=== PATIENT | female | born 1935 | race Caucasian/White ===

== ENCOUNTER → 2021-08-29 | Outpatient (CLI) | payer MEDICARE, BC ==
[2021-08-29 10:05] VITALS: BP 182/81; PULSE 65; RESP 18
--- NOTE | 2021-08-29 10:45 | P.CON ---
Consult Note - . Consult date: 08/29/21 Assessment/Plan:: HISTORY OF PRESENT ILLNESS: 86 yr female as a referral from Dr Mullen presents today with chronic and severe cervical pain secondary to DDD, spinal stenosis, neuroforaminal stenoses, spondylosis and facet arthropathy for evaluation. Pt states her pain level is 6/10 in intensity, dull and achy in the lower aspects of her C spine but radiates towards her shoulders and UEs in a sharp, shooting burning character. Also admits to occasional numbness in the hands. Pain escalates as high as 10/10 in intensity with repetitive movements. Pain is relieved with medications (Mobic, Neurontin by Dr Mallory), home based stretching regimen at home, heat or rest. Pt admits to 60% pain relief for a month with 2 weeks of prednisone, but the pain returned thereafter. PMH: OA, Peripheral Neuropathy PSH: Cholecystectomy, Appendectomy, Hysterectomy SH: Negative x 3 FH: Non contributory All: See list Meds: See list REVIEW OF ORGAN SYSTEMS: CONSTITUTIONAL: No fevers or chills. No recent weight loss. HEENT: No visual acuity loss, eye pain, difficulties with hearing. No nosebleeds. No difficulty swallowing. RESPIRATORY: Denies any troubles with breathing or dyspnea on exertion. CARDIOVASCULAR: Denies any chest pain, palpitations, or recent heart attacks. GASTROINTESTINAL: Denies fatty food intolerance. Has change in bowel habits and gas bloat. GENITOURINARY: Denies any blood in urine. Has increased urinary frequency. NEUROLOGICAL: + numbness and tingling along the distal extremities. No seizure disorders or headaches. MUSCULOSKELETAL: + back pain SKIN: No skin cancer. No rash. PSYCHIATRIC: Denies current depression or suicidal thoughts. ENDOCRINE: Denies current thyroid disorders. Denies any blood sugar glucose intolerance. HEME/LYMPHATIC: Denies any lumps and bumps around the neck. History of deep venous thrombosis. ALLERGY/IMMUNOLOGY: No immunoglobulin therapy. No immune deficiencies. BREAST: Denies current breast lumps, pain or nipple discharge. Physical Examinations : Constitutional : Cooperative , not in acute distress . HEENT: Neck supple. No Lymphadenopathy. Normal thyroid size . Eyes no ptosis , no icterus, no photophobia . Hearing intact. Normal oropharynx. No Thrush. Respiratory : Chest clear to auscultations bilaterally. No wheezing. No rhonchi. Cardiovascular : Regular rate and rhythm , S1 / S2. No S3 . No S4. Gastrointestinal : Abdomen soft. No tenderness. Bowel sounds x 4. No organomegaly . Genitourinary : Deferred. Neurologic : Cranial nerve II to XII intact. No focal neurological deficits. Psychiatric : alert & oriented x 3. Matching mood & appropriate affect. Judgment & insight intact. Lymphatic No Lymphadenopathy. Musculoskeletal : Cervical Spine Motor strength in the deltoid and biceps: Normal right side. Normal Left side Motor strength biceps and the wrist extensors: Normal right side . Normal left side Motor strength in the triceps muscle: Normal right side. Normal left side Deep tendon reflexes: Normal at the biceps. Normal at Brachioradialis. Normal at triceps Vertebral body tenderness over C6, C7 Cervical facet loading test: positive bilaterally Spurling test: positive bilaterally Neck distraction test: positive bilaterally Moe sign: positive bilaterally Lumbar spine Motor strength lower extremities ,thigh and legs 5/5 Right side , 5/5 Left side Deep tendon reflexes : Normal Knee Jerk. Normal Ankle Jerk Vertebral body tenderness over Lumbar facet Loading Test: positive Right / positive Left Range of motion of the lumbar spine Flexion 30 degrees, extension 10 degrees Straight Leg Raise test: Left/ Right positive at degree Odette test: positive right / positive left. Severe tenderness over the Sacroiliac joint on the Right / Left sides Gaenslen test: positive bilaterally Seated flexion test: positive bilaterally. Imaging: MRI without contrast of the cervical spine from 08/12/21 reviewed Assessment/ Plan : Cervical DDD, Cervical facet arthropathy, Cervical Stenosis Recommendation of FELECIA C6-C7. May need a series of injections, up to 3 within a six-month period, for optimal pain relief. Risks, benefits of procedure discussed and patient verbalized understanding. Denies aspirin or anti- coagulant use or medical history of diabetes. All questions answered. I have spent greater than 50 minutes on patient care today. Dr Rosado was available by phone for the evaluation of this patient. The time was used to review the medical records including relevant urine studies and Prescription history (MAPs), review of the available imaging, evaluation and examination of the patient, coordination of care with the medical staff and if applicable referring physicians, as well as creation of the medical record PQRS Measure Charge Sheet Mode of Arrival: Ambulatory - Pain Location Neck Non-Pharmacological Interventions: Heat, Home Exercise, Position/Reposition, Stretching Pharmacological Interventions: PRN Medication, Scheduled Medication PQRS Narrative: Blood Pressure 182/81 Pain Intensity [Neck] 6 Scale Used Numeric (1 - 10) Hx Alcohol Use (MH) No Home Medications: Ambulatory Orders Gabapentin [Neurontin] 300 mg PO TID 08/29/21 Ibuprofen [Motrin] 400 mg PO Q8HR PRN 08/29/21 Meloxicam [Mobic] 7.5 mg PO DAILY 08/29/21 Vit C/E/Zn/Coppr/Lutein/Zeaxan [Preservision Areds 2 Softgel] 226 mg PO DAILY 08/29/21
== END ==
LOC: PNWHC3 09:03
PROVIDERS: ATTEND Specialist
DX: M50.30 Other cervical disc degeneration, unspecified cervical region (principal); M47.812 Spondylosis without myelopathy or radiculopathy, cervical region; M48.02 Spinal stenosis, cervical region; Z88.6 Allergy status to analgesic agent; Z88.5 Allergy status to narcotic agent
CPT/HCPCS: 99211

== ENCOUNTER 2021-10-22 09:19 | Day surgery (SDC) | payer MEDICARE, BC ==
[2021-10-18 16:07] VITALS: BMI 22.4
[~2021-10-22 09:19] MED LIST: LACTATED RINGERS 1,000 ML IV SCH; LIDOCAINE 1% (10MG/ML) FOR IV START INTRADERMA PRN
[2021-10-22 09:49] VITALS: TEMP 97.9
[2021-10-22] MEDS ORDERED: hydrALAZINE HCL 20 MG/ML 1 ML VIAL IVP ONE (09:55)
[2021-10-22] MEDS ORDERED: IOPAMIDOL M200 10 ML VIAL ONE (09:57)
[2021-10-22] MEDS ORDERED: fentaNYL (PF) 50 MCG/ML 2 ML AMP ONE (09:57)
[2021-10-22] MEDS ORDERED: MIDAZOLAM 2 MG/2 ML VIAL ONE (09:57)
[2021-10-22] MEDS ORDERED: DEXAMETHASONE SOD PHOSPHATE 10 MG/ML 1 ML VIAL ONE (09:57)
--- NOTE | 2021-10-22 10:12 | P.PCN ---
Date of Procedure: 10/22/21 Procedure(s) Performed: . PROCEDURE 1. Cervical epidural steroid injection under fluoroscopic guidance, C7-T1 (fluoroscopy images available in the radiology department ) 2. Cervical epidurogram. PREOPERATIVE DIAGNOSIS: 1- Cervical Degenerative Disc Diseases 2-cervical spondylosis with cervical Facet arthropathy without myelopathy POSTOPERATIVE DIAGNOSIS: : 1- Cervical Degenerative Disc Diseases , 2-cervical spondylosis with cervical Facet arthropathy without myelopathy ANESTHESIA: Local anesthesia with lidocaine 1 % , and moderate sedation, with Versed 1 mg and Fentanyl 50 mcg. EBL 0 PROCEDURE INDICATION: The patient with neck pain and radiculitis unresponsive to conservative treatment consents for procedure. PROCEDURE DESCRIPTION / TECHNIQUE: The patient was seen and identified in the preoperative area. Risks, benefits, complications, including but not limited to infections ,bleeding , allergic reactions to the medications ,and not complete pain releife, and alternatives were discussed with the patient, the patient agreed to proceed with the procedure and signed the consent. Patient was taken to the OR and time out was completed. The patient was placed in the prone position on the procedure table. A pillow was placed under the patients chest to increase the cervical interlaminar space. The cervical area was prepped and draped in the usual sterile fashion. Vital signs were closely monitored during the procedure. Conscious sedation was used during the procedure to decrease patients anxiety. Using anterior-posterior fluoroscopy, the C7-T1 interlaminar space was identified and the skin over this site was marked and then infiltrated with 1% lidocaine subcutaneously. Subsequently, a 20-gauge 3-1/2-inch Tuohy epidural needle was inserted and advanced toward the epidural space by means of the ``hanging-drop technique and guided by AP and lateral fluoroscopy. The correct needle position in the epidural space was verified with the injection of 2 mL of the water soluble contrast dye [id number]-[id number] and observing an excellent epidurogram with the epidural spread of the dye, after negative aspiration for blood and CSF and in the absence of paresthesias. then, mixture containing 10 mg Dexamethasone and 2 ml of preservative-free normal saline injected and a washout of epidurogram was seen. Needle was withdrawn intact, skin was cleansed, and bandages were applied. Complications= none. Disposition= patient was placed in supine position and transferred to the recovery room area in stable condition and there was no evidence of upper or lower extremity motor or sensory deficit after the procedure patient was discharged from recovery room after discharge criteria met and home discharge instructions was given by the staff and patient will follow with the pain clinic in 2-4 weeks
[2021-10-22] MEDS ORDERED: IV FLUID CONTINUATION 800 ML IV ONE (10:18)
[2021-10-22 10:44] VITALS: BP 176/75; PULSE 76; RESP 18
--- NOTE | 2021-10-22 10:48 | FL ---
EXAMINATION TYPE: FL guided pain mgmt statistic DATE OF EXAM: 10/22/2021 CLINICAL HISTORY: Cervical epidural injection TECHNIQUE: Fluoroscopic guided procedure. FINDINGS: Fluoroscopic guidance was provided during the procedure. A total of 9 seconds of fluorosco pic time was utilized during the procedure and 1 spot image was acquired. IMPRESSION: As Above.
== END 2021-10-22 11:00 | disposition home or self-care (01) ==
LOC: ORPAIN 09:19
PROVIDERS: ATTEND Specialist
DX: M50.10 Cervical disc disorder with radiculopathy, unspecified cervical region (principal); M47.22 Other spondylosis with radiculopathy, cervical region; Z88.5 Allergy status to narcotic agent
CPT/HCPCS: 62321; J2250; J0360; J1100; J3010; Q9966

== ENCOUNTER → 2021-11-11 | Outpatient (CLI) | payer MEDICARE, BC ==
[2021-11-11 09:42] VITALS: BP 209/91; PULSE 65; RESP 18; TEMP 97.9
--- NOTE | 2021-11-11 14:23 | P.PAINPG ---
PQRS Measure Charge Sheet Comment: A 86 yr old female w at side with a history of severe and chronic neck pain secondary to cervical degenerative disc diseases and spondylosis with facet arthropathy presents today for evaluation s/p FELECIA C7-T1 x 2. Pt states she experienced 0% pain relief s/p procedure. Pain level is currently at 5/10 in intensity, localized in lower cervical spine with radiation of numbness to BL UEs, constant, dull/ achy/ sharp/ shooting towards the UEs. Pain is provoked by lifting. Pain is alleviated with PT which she hasn't started yet, medications (Ibuprofen, Lidocaine topicals), repositioning and rest. Interventional pain procedures completed include FELECIA x2 Patient is currently on Motrin, Lidocaine topical Patient denies any side effects of the medication(s), denies excessive drowsiness or sleepiness, denies suicidal ideation and reports that the current pain medication is helping to control the pain and improve activities of daily living. Patient denies any motor or sensory deficits. Patient denies any fever or night sweats, denies any change in the bowel movements or urination. Physical Examination: -Constitutional: Cooperative. Not in acute distress . - Neurologic: Cranial nerve II to XII intact. No focal neurological deficits. - Psychatric: Alert & oriented x 3. Matching mood & appropriate affect. Judgment and insight intact. - Musculoskeletal: Cervical spine: Muscle bulk/ tone/ strength in the bilateral upper extremities normal Vertebral body tenderness to palpation over Spurling test positive Distraction test positive Facet loading test positive over BL C6-C7, C7-T1 Thoracic spine Muscle bulk / tone/ strength in the bilateral paraspinal muscles normal Vertebral body tender to palpation over Facet loading test positive Lumbar spine: Motor bulk/ tone/ strength lower extremities , thigh and legs : 5/5 Deep tendon reflexes : Normal Knee Jerk. Normal Ankle Jerk . Vertebral body tenderness to palpation over Lumbar Facet Loading Test positive Straight Leg Raise: positive at 30 degrees right side/ left side Gaenslen's Test positive Sacral spine : Severe tenderness over the Sacroiliac joint: right side / left side Range of motion: Flexion of the lumbar spine <60 degrees Range of motion: Extension of the lumbar spine <20 degrees Gaenslen's Test positive Jermaine's Test positive Odette test: positive right side / left side Thigh Thrust Test Sacral Thrust Test Assessment and plan: Chronic neck pain secondary to cervical degenerative disc disease , spond ylosis with facet arthropathy without myelopathy Recommendation of BL facet block of the MBs C6-C7, C7-T1. May need a series of injections, up until RFA, for optimal pain relief. Risks, benefits of procedure discussed and pt verbalized understanding. Denies anticoagulant use or medical history of diabetes. All patient questions answered MAPS reviewed and it was appropriate. I have spent less than 30 minutes on patient care today. Dr Rosado was available by phone for the evaluation of this patient. The time was used to review the medical records including relevant urine studies and Prescription history (MAPs), review of the available imaging, evaluation and examination of the patient, coordination of care with the medical staff and if applicable referring physicians, as well as creation of the medical record PQRS Narrative: Hx Alcohol Use (MH) No Home Medications: Ambulatory Orders Albuterol Inhaler [Ventolin Hfa Inhaler] 1 puff INHALATION DIRECTED PRN 10/18/21 Ibuprofen [Motrin Ib] 400 - 600 mg PO DIRECTED PRN 10/18/21 Vit C/E/Zn/Coppr/Lutein/Zeaxan [Preservision Areds 2 Softgel] 2 each PO DAILY 10/18/21 Controlled Substance Measures - Controlled Substance Measures Is patient prescribed a controlled substance at discharge?: No
== END ==
LOC: PNWHC3 09:13
PROVIDERS: ATTEND Specialist
DX: M50.30 Other cervical disc degeneration, unspecified cervical region (principal); M47.812 Spondylosis without myelopathy or radiculopathy, cervical region; Z88.5 Allergy status to narcotic agent; Z88.6 Allergy status to analgesic agent; Z91.02 Food additives allergy status
CPT/HCPCS: 99211

== ENCOUNTER 2022-02-07 07:37 | Inpatient (IN) | payer MEDICARE, BC ==
[2022-02-07] MEDS ORDERED: hydrALAZINE HCL 20 MG/ML 1 ML VIAL IVP STA ×2 (08:00→08:52)
--- NOTE | 2022-02-07 08:10 | ED ---
Recheck HPI - General Chief Complaint: Recheck/Abnormal Lab/Rx Stated Complaint: hypertension Time Seen by Provider: 02/07/22 07:54 Source: patient, family, RN notes reviewed Mode of arrival: ambulatory Limitations: no limitations - History of Present Illness Initial Comments: This is an 86-year-old female who presents to the emergency department for hyp ertension. Patient states that she has been getting headaches due to her elevated blood pressure. She saw her primary care provider 3-4 days ago, and her lisinopril was increased to 20 mg. States that she has not yet seen any improvement in her blood pressure. She has only been treated for hypertension over the course of the last month. States that prior to a month ago, she never had problems with her blood pressure. Denies any chest pain, shortness of breath, or other symptoms aside from the headache. Denies any visual changes. Denies any fevers, chills, sore throat, cough, dyspnea, chest pain, palpitations, abdominal pain, nausea, vomiting, diarrhea, or back pain. MD Complaint: other (Hypertension) - Related Data Home Medications Medication Instructions Recorded Confirmed Vit C/E/Zn/Coppr/Lutein/Zeaxan 2 cap PO DAILY 10/18/21 02/07/22 [Preservision Areds 2 Softgel] lisinopriL [Zestril] 20 mg PO DAILY 02/07/22 02/07/22 Allergies Allergy/AdvReac Type Severity Reaction Status Date / Time acetaminophen AdvReac stomach Verified 02/07/22 12:49 pain codeine AdvReac stomach Verified 02/07/22 12:49 pain [employer]ERS AdvReac Unknown Diarrhea Uncoded 02/07/22 12:49 Review of Systems ROS Statement: Those systems with pertinent positive or pertinent negative responses have been documented in the HPI. ROS Other: All systems not noted in ROS Statement are negative. Past Medical History Past Medical History: Asthma, Hypertension Additional Past Medical History / Comment(s): IBS, NECK PAIN WITH PAIN AND NUMBNESS IN ARMS AND HANDS.Scoliosis History of Any Multi-Drug Resistant Organisms: None Reported Past Surgical History: Appendectomy, Cholecystectomy, Hysterectomy, Tonsillectomy Past Anesthesia/Blood Transfusion Reactions: No Reported Reaction Past Psychological History: No Psychological Hx Reported Smoking Status: Never smoker Past Alcohol Use History: None Reported Past Drug Use History: None Reported General Exam Limitations: no limitations General appearance: alert, in no apparent distress Head exam: Present: atraumatic, normocephalic, normal inspection Respiratory exam: Present: normal lung sounds bilaterally. Absent: respiratory distress, wheezes, rales, rhonchi, stridor Cardiovascular Exam: Present: regular rate, normal rhythm, normal heart sounds. Absent: systolic murmur, diastolic murmur, rubs, gallop, clicks Neurological exam: Present: alert, oriented X3, CN II-XII intact Psychiatric exam: Present: normal affect, normal mood Skin exam: Present: warm, dry, intact, normal color. Absent: rash Course Vital Signs 02/07/22 02/07/22 02/07/22 07:46 08:01 08:30 Temperature 97.9 F Pulse Rate 76 66 86 Respiratory 20 16 16 Rate Blood Pressure 230/110 163/75 O2 Sat by Pulse 97 96 97 Oximetry 02/07/22 02/07/22 02/07/22 08:50 09:05 11:01 Temperature Pulse Rate 90 96 72 Respiratory 16 18 14 Rate Blood Pressure 173/73 176/102 107/56 O2 Sat by Pulse 98 97 97 Oximetry 02/07/22 11:30 Temperature Pulse Rate 89 Respiratory 16 Rate Blood Pressure 143/73 O2 Sat by Pulse 96 Oximetry Medical Decision Making - Medical Decision Making This is an 86-year-old female who presents to the emergency department for hypertension. Patient's initial blood pressure is markedly elevated at 230/110. She was subsequently given 20 mg of hydralazine and lab work was obtained to look for signs of end organ damage. Lab work was nonactionable. Patient noted that she started feeling anxious with chest pain, shortness of breath, and nausea. The chest pain is described as tightness. Chest x-ray was subsequently obtained, revealing no acute cardiopulmonary process. She was given Zofran and 0.5 mg of Ativan. Patient continued to feel very weak. She was given a liter of IV fluids. Symptoms did not improve after IV fluids and she was subsequently given a nitroglycerin tablet. Again, the nitroglycerin had no effect on her symptoms. The chest pain started shortly after her first dose of hydralazine when the blood pressure was in the 180s systolically. Chest pain likely occurred due to the drop in blood pressure. After a couple of hours and being given Aspirin and Morphine, symptoms slowly started to improve. However, she does continue to be on 2 L of oxygen via nasal cannula with saturations ranging from 90-95%. This was discussed with the [facility] for observation admission, however they requested she be placed inpatient due to hypertensive urgency/emergency. Patient admitted to medicine on inpatient status. This case was discussed in detail with the attending ED physician. Presentation, findings, and treatment plan discussed in detail as well. - Lab Data Result diagrams: 02/07/22 08:21 02/07/22 08:21 Lab Results 02/07/22 02/07/22 02/07/22 Range/Units 08:21 08:21 08:21 WBC 7.1 (3.8-10.6) k/uL RBC 4.80 (3.80-5.40) m/uL Hgb 14.1 (11.4-16.0) gm/dL Hct 41.8 (34.0-46.0) % MCV 87.2 (80.0-100.0) fL MCH 29.5 (25.0-35.0) pg MCHC 33.8 (31.0-37.0) g/dL RDW 13.1 (11.5-15.5) % Plt Count 226 (150-450) k/uL MPV 8.3 Neutrophils % 68 % Lymphocytes % 16 % Monocytes % 6 % Eosinophils % 8 % Basophils % 1 % Neutrophils # 4.8 (1.3-7.7) k/uL Lymphocytes # 1.1 (1.0-4.8) k/uL Monocytes # 0.5 (0-1.0) k/uL Eosinophils # 0.5 (0-0.7) k/uL Basophils # 0.0 (0-0.2) k/uL PT (9.0-12.0) sec INR (<1.2) APTT (22.0-30.0) sec D-Dimer (<0.60) mg/L FEU Sodium 140 (137-145) mmol/L Potassium 3.7 (3.5-5.1) mmol/L Chloride 105 (98-107) mmol/L Carbon Dioxide 26 (22-30) mmol/L Anion Gap 9 mmol/L BUN 15 (7-17) mg/dL Creatinine 0.56 (0.52-1.04) mg/dL Est GFR (CKD-EPI)AfAm >90 (>60 ml/min/1.73 sqM) Est GFR (CKD-EPI)NonAf 85 (>60 ml/min/1.73 sqM) Glucose 99 (74-99) mg/dL Calcium 9.4 (8.4-10.2) mg/dL Total Bilirubin 1.1 (0.2-1.3) mg/dL AST 21 (14-36) U/L ALT 14 (4-34) U/L Alkaline Phosphatase 104 (38-126) U/L Troponin I (0.000-0.034) ng/mL Total Protein 6.5 (6.3-8.2) g/dL Albumin 4.2 (3.5-5.0) g/dL Urine Color Light Yellow Urine Appearance Clear (Clear) Urine pH 6.5 (5.0-8.0) Ur Specific Zearing 1.010 (1.001-1.035) Urine Protein Negative (Negative) Urine Glucose (UA) Negative (Negative) Urine Ketones Trace H (Negative) Urine Blood Negative (Negative) Urine Nitrite Negative (Negative) Urine Bilirubin Negative (Negative) Urine Urobilinogen <2.0 (<2.0) mg/dL Ur Leukocyte Esterase Trace H (Negative) Urine RBC 1 (0-5) /hpf Urine WBC 2 (0-5) /hpf Hyaline Casts 1 (0-2) /lpf Urine Mucus Rare H (None) /hpf 02/07/22 02/07/22 02/07/22 Range/Units 08:21 11:30 11:30 WBC (3.8-10.6) k/uL RBC (3.80-5.40) m/uL Hgb (11.4-16.0) gm/dL Hct (34.0-46.0) % MCV (80.0-100.0) fL MCH (25.0-35.0) pg MCHC (31.0-37.0) g/dL RDW (11.5-15.5) % Plt Count (150-450) k/uL MPV Neutrophils % % Lymphocytes % % Monocytes % % Eosinophils % % Basophils % % Neutrophils # (1.3-7.7) k/uL Lymphocytes # (1.0-4.8) k/uL Monocytes # (0-1.0) k/uL Eosinophils # (0-0.7) k/uL Basophils # (0-0.2) k/uL PT 10.9 (9.0-12.0) sec INR 1.0 (<1.2) APTT 19.3 L (22.0-30.0) sec D-Dimer 0.52 (<0.60) mg/L FEU Sodium (137-145) mmol/L Potassium (3.5-5.1) mmol/L Chloride (98-107) mmol/L Carbon Dioxide (22-30) mmol/L Anion Gap mmol/L BUN (7-17) mg/dL Creatinine (0.52-1.04) mg/dL Est GFR (CKD-EPI)AfAm (>60 ml/min/1.73 sqM) Est GFR (CKD-EPI)NonAf (>60 ml/min/1.73 sqM) Glucose (74-99) mg/dL Calcium (8.4-10.2) mg/dL Total Bilirubin (0.2-1.3) mg/dL AST (14-36) U/L ALT (4-34) U/L Alkaline Phosphatase (38-126) U/L Troponin I <0.012 <0.012 (0.000-0.034) ng/mL Total Protein (6.3-8.2) g/dL Albumin (3.5-5.0) g/dL Urine Color Urine Appearance (Clear) Urine pH (5.0-8.0) Ur Specific Zearing (1.001-1.035) Urine Protein (Negative) Urine Glucose (UA) (Negative) Urine Ketones (Negative) Urine Blood (Negative) Urine Nitrite (Negative) Urine Bilirubin (Negative) Urine Urobilinogen (<2.0) mg/dL Ur Leukocyte Esterase (Negative) Urine RBC (0-5) /hpf Urine WBC (0-5) /hpf Hyaline Casts (0-2) /lpf Urine Mucus (None) /hpf - EKG Data EKG Comments: Sinus rhythm. Normal axis. Left atrial enlargement. Ventricular rate 66 bpm, MI interval 177 ms, QRS duration 99 ms, QTC 418 ms. - Radiology Data Radiology results: report reviewed, image reviewed Disposition Clinical Impression: Chest pain, Hypertensive crisis Disposition: ADMITTED IP TO THIS [facility] Referrals: Chantel Mallory DO [Primary Care Provider] - 1-2 days
[2022-02-07 08:31] LABS: Basophils % (A) 1 %; Eosinophils # (A) 0.5 k/uL (0-0.7); Eosinophils % (A) 8 %; HCT 41.8 % (34.0-46.0); HGB 14.1 gm/dL (11.4-16.0); Lymphocytes # (A) 1.1 k/uL (1.0-4.8); Lymphocytes % (A) 16 %; MCH 29.5 pg (25.0-35.0); MCHC 33.8 g/dL (31.0-37.0); MCV 87.2 fL (80.0-100.0); Mean Platelet Volume 8.3; Monocytes # (A) 0.5 k/uL (0-1.0); Monocytes % (A) 6 %; Neutrophils # (A) 4.8 k/uL (1.3-7.7); Neutrophils % (A) 68 %; Platelet Count 226 k/uL (150-450); RDW 13.1 % (11.5-15.5); WBC 7.1 k/uL (3.8-10.6)
[2022-02-07 08:48] LABS: ALT 14 U/L (4-34); AST 21 U/L (14-36); African American GFR (CKD) >90 (>60 ml/min/1.73 sqM); Albumin 4.2 g/dL (3.5-5.0); Alkaline Phosphatase 104 U/L (38-126); Anion Gap 9 mmol/L; Blood Urea Nitrogen 15 mg/dL (7-17); Calcium 9.4 mg/dL (8.4-10.2); Carbon Dioxide 26 mmol/L (22-30); Chloride 105 mmol/L (98-107); Glucose 99 mg/dL (74-99); Non-African American GFR(CKD) 85 (>60 ml/min/1.73 sqM); Potassium 3.7 mmol/L (3.5-5.1); Sodium 140 mmol/L (137-145); Total Bilirubin 1.1 mg/dL (0.2-1.3); Total Protein 6.5 g/dL (6.3-8.2)
[2022-02-07] MEDS ORDERED: KETOROLAC 15 MG/ML 1 ML VIAL IVP STA ×2 (08:57→15:51)
[2022-02-07] MEDS ORDERED: ONDANSETRON 4 MG/2 ML VIAL IVP STA (09:14)
[2022-02-07] MEDS ORDERED: LORazepam 2 MG/ML INJ IV STA (09:24)
[2022-02-07 09:48] LABS: Appearance,Urine Clear (Clear); Bilirubin,Urine Negative (Negative); Blood,Urine Negative (Negative); Color,Urine Light Yellow; Glucose,Urine (UA) Negative (Negative); Hyaline Casts,Urine 1 /lpf (0-2); Ketones,Urine Trace (Negative); Leukocyte Esterase,Urine Trace (Negative); Mucus,Urine Rare /hpf; Nitrite,Urine Negative (Negative); PH, Urine 6.5 (5.0-8.0); Protein,Urine Negative (Negative); RBC,Urine 1 /hpf (0-5); Urobilinogen,Urine <2.0 mg/dL (<2.0); WBC,Urine 2 /hpf (0-5)
[2022-02-07] MEDS ORDERED: SODIUM CHLORIDE 0.9% 1,000 ML IV STA (10:05)
--- NOTE | 2022-02-07 10:41 | XR ---
EXAMINATION TYPE: XR chest 2V DATE OF EXAM: 02/07/2022 COMPARISON: None INDICATION: Chest pain TECHNIQUE: Frontal and lateral views of the chest are obtained. FINDINGS: The heart size is normal. The pulmonary vasculature is normal. The lungs are clear. IMPRESSION: 1. No acute pulmonary process.
[2022-02-07] MEDS ORDERED: NITROGLYCERIN SL TABS 0.4 MG TAB SUBLINGUAL STA (11:48)
[2022-02-07] MEDS ORDERED: ASPIRIN 81 MG PO STA (12:04)
[2022-02-07] MEDS ORDERED: MORPHINE SULFATE 2 MG/ML SYRINGE IVP STA (12:18)
[2022-02-07 13:20] LABS: Prothrombin Time 10.9 sec (9.0-12.0)
[2022-02-07 13:24] LABS: Partial Thromboplastin Time 19.3 sec (22.0-30.0)
[2022-02-07] MEDS ORDERED: NALOXONE 0.4 MG/ML 1 ML VIAL IV PRN (14:57)
[2022-02-07] MEDS ORDERED: ONDANSETRON 4 MG/2 ML VIAL IVP PRN (14:57)
[2022-02-07] MEDS ORDERED: KETOROLAC 15 MG/ML 1 ML VIAL IVP PRN (14:57)
[2022-02-07] MEDS ORDERED: MORPHINE SULFATE 2 MG/ML SYRINGE IVP PRN (14:59)
[2022-02-07] MEDS ORDERED: METOCLOPRAMIDE 5 MG/ML 2 ML VIAL IVP STA (15:51)
[2022-02-07] MEDS ORDERED: HEPARIN SODIUM 1,000 UN/ML (10ML VL) IV ONE (18:42)
[2022-02-07] MEDS ORDERED: HEPARIN SODIUM 1,000 UN/ML (10ML VL) IV PRN (18:42)
--- NOTE | 2022-02-07 19:23 | CT ---
EXAMINATION TYPE: CT brain wo con DATE OF EXAM: 02/07/2022 COMPARISON: None HISTORY: hypertensive urgency, headache, elevated troponin CT DLP: 1123.4 mGycm Automated exposure control for dose reduction was used. There is hypodensity in the periventricular white matter. There is no mass effect nor midline shift. No sign of intracranial hemorrhage. The calvarium is intact. There is normal aeration of the mastoid sinus on the left side. There is incomplete pneumatization right mastoid sinus. IMPRESSION: Cerebral atrophy and chronic small vessel ischemia. No acute intracranial abnormality.
[2022-02-07] MEDS: HEPARIN SOD,PORK IN 0.45% NACL 25,000 UNIT in 0.45% NACL 1 250ML.BAG IV SCH (21:15)
[2022-02-08] MEDS ORDERED: hydrALAZINE HCL 25 MG TAB PO PRN (07:02)
[2022-02-08] MEDS ORDERED: ASPIRIN 81 MG PO SCH (09:00)
[2022-02-08] MEDS ORDERED: lisinopriL 20 MG TAB PO SCH (09:00)
--- NOTE | 2022-02-08 09:07 | P.HPIM ---
History of Present Illness This is a pleasant 86 years old female with past medical history of Asthma, Hypertension,IBS, neck and back pain with pain and numbness in the arms and hands, Scoliosis Presents because of headache and hypertension 230/110. Patient states that her headache was mild about 2/10, currently is completely resolved no other symptoms like dizziness or weakness or numbness. No blurred vision or slurred speech. She has some mild chest pain which was central nonradiating yesterday and is now completely gone. No dyspnea, no coughing. No vomiting or diarrhea or abdominal pain. No dysuria or urgency. Smoked or drank alcohol use drugs she states. She follows up with Dr. Myers [facility] for her scoliosis and neck pain and spinal disease which causes sometimes leg pain Currently her blood pressure improved down to 145/81. She is saturating 90% on room air. She is afebrile. Vitals are stable. Unremarkable labs including CBC, INR 1.0, normal d-dimer of 0.52. BNP is unremarkable Liver enzymes not elevated. Troponin: 2 negative results less than 0.012, slightly elevated at 0.25. Urine analysis is unremarkable. CT of the brain: Cerebral atrophy and chronic ischemic changes with no acute intracranial process. Chest x-ray: No acute process. EKG showing normal sinus rhythm at [address]-T changes. In the emergency room patient received hydralazine and heparin drip Review of Systems Review of systems CONSTITUTIONAL: No fever, no malaise, no fatigue. HEENT: No recent visual problems or hearing problems. Denied any sore throat. CARDIOVASCULAR: No orthopnea, PND, no palpitations, no syncope. PULMONARY: No shortness of breath, no cough, no hemoptysis. GASTROINTESTINAL: No diarrhea, no nausea, no vomiting, no abdominal pain. Normoactive bowel sounds. NEUROLOGICAL: No headaches, no weakness, no numbness. HEMATOLOGICAL: Denies any bleeding or petechiae. GENITOURINARY: Denies any burning micturition, frequency, or urgency. MUSCULOSKELETAL/RHEUMATOLOGICAL: Denies any joint pain, swelling, or any muscle pain. ENDOCRINE: Denies any polyuria or polydipsia. Past Medical History Past Medical History: Asthma, Hypertension Additional Past Medical History / Comment(s): IBS, neck and back pain with pain and numbness in the arms and hands, Scoliosis History of Any Multi-Drug Resistant Organisms: None Reported Past Surgical History: Appendectomy, Cholecystectomy, Hysterectomy, Tonsillectomy Past Anesthesia/Blood Transfusion Reactions: No Reported Reaction Past Psychological History: No Psychological Hx Reported Smoking Status: Never smoker Past Alcohol Use History: None Reported Past Drug Use History: None Reported Medications and Allergies Home Medications Medication Instructions Recorded Confirmed Type Vit C/E/Zn/Coppr/Lutein/Zeaxan 2 cap PO DAILY 10/18/21 02/07/22 History [Preservision Areds 2 Softgel] lisinopriL [Zestril] 20 mg PO DAILY 02/07/22 02/07/22 History Allergies Allergy/AdvReac Type Severity Reaction Status Date / Time acetaminophen AdvReac stomach Verified 02/07/22 12:49 pain codeine AdvReac stomach Verified 02/07/22 12:49 pain [employer] AdvReac Unknown Diarrhea Uncoded 02/07/22 12:49 Physical Exam Vitals: Vital Signs Temp Pulse Pulse Resp BP BP Pulse Ox 02/08/22 04:00 99.1 F 80 18 145/81 90 L 02/07/22 23:11 98.9 F 89 16 160/71 90 L 02/07/22 19:48 98.3 F 90 18 161/68 91 L 02/07/22 17:00 98.3 F 78 16 119/65 94 L 02/07/22 11:30 89 16 143/73 96 02/07/22 11:01 72 14 107/56 97 02/07/22 09:05 96 18 176/102 97 02/07/22 08:50 90 16 173/73 98 02/07/22 08:30 86 16 163/75 97 02/07/22 08:01 66 16 96 02/07/22 07:46 97.9 F 76 20 230/110 97 Intake and Output 02/07/22 02/07/22 02/08/22 14:59 22:59 06:59 Intake Total 73.167 Balance 73.167 Intake: Intake, IV Titration 73.167 Amount Heparin Sod,Pork in 0.45% 73.167 NaCl 25,000 unit In 0.45 % NaCl 1 250ml.bag @ 12 UNITS/KG/HR 6.26 mls/hr IV .Q24H [facility] Rx#: [id number] Oral 0 Other: Voiding Method Toilet Toilet # Voids 2 # Bowel Movements 1 Weight 52.163 kg 52.163 kg 52 kg GENERAL: The patient is alert and oriented x3, not in any acute distress. Well developed, well nourished. HEENT: Pupils are round and equally reacting to light. EOMI. No scleral icterus. No conjunctival pallor. Normocephalic, atraumatic. No pharyngeal erythema. No thyromegaly. CARDIOVASCULAR: S1 and S2 present. No murmurs, rubs, or gallops. PULMONARY: Chest is clear to auscultation, no wheezing or crackles. ABDOMEN: Soft, nontender, nondistended, normoactive bowel sounds. No palpable organomegaly. MUSCULOSKELETAL: No joint swelling or deformity. EXTREMITIES: No cyanosis, clubbing, or pedal edema. NEUROLOGICAL: Gross neurological examination did not reveal any focal deficits. SKIN: No rashes. no petechiae. Results CBC & Chem 7: 02/07/22 08:21 02/07/22 08:21 Labs: Abnormal Lab Results - Last 24 Hours (Table) 02/07/22 02/07/22 02/07/22 Range/Units 08:21 11:30 17:46 APTT 19.3 L (22.0-30.0) sec Troponin I 0.258 H* (0.000-0.034) ng/mL Urine Ketones Trace H (Negative) Ur Leukocyte Esterase Trace H (Negative) Urine Mucus Rare H (None) /hpf 02/08/22 Range/Units 03:33 APTT 73.9 H (22.0-30.0) sec Troponin I (0.000-0.034) ng/mL Urine Ketones (Negative) Ur Leukocyte Esterase (Negative) Urine Mucus (None) /hpf Thrombosis Risk Factor Assmnt - Choose All That Apply Any of the Below Risk Factors Present?: No Other Risk Factors: No Other congenital or acquired thrombophilia - If yes, enter type in comment: No Thrombosis Risk Factor Assessment Level: Very Low Risk Assessment and Plan Assessment: Hypertension with urgency on admission elevated troponin, most likely secondary to stress from hypertension. 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 Continue same treatment. Continue with symptomatic treatment. Resume home medication. Monitor lytes and vitals. DVT and GI prophylaxis. Further recommendations as per clinical course of the patient DVT prophylaxis: heparin GI Prophylaxis: Pepcid Prognosis is guarded
[2022-02-08] MEDS: FAMOTIDINE 20 MG/2 ML VIAL IV SCH ×2 (10:22→20:27)
[2022-02-08] MEDS: VALSARTAN 160 MG TAB PO SCH ×2 (10:32→20:27)
--- NOTE | 2022-02-08 12:16 | P.CRDCN ---
History of Present Illness Consult date: 02/08/22 Consult reason: hypertension History of present illness: This is Deyvi Stevenson NP, I'm dictating on behalf of Dr. Garcia's H&P and A&P The patient was interviewed and examined. HPI: [We reconsult us to see this pleasant 86-year-old female for hypertensive urgency. Patient reports that she has had continuously elevated blood pressures over the last month. She reports that she was just recently diagnosed with hypertension approximately one month ago, and was started on lisinopril at that time. Patient states that yesterday she had checked her blood pressure and found it to be extremely high. She presented to the hospital for evaluation. The only symptom that she was experiencing was a headache. She does state that she was also experiencing some unsteadiness after presenting to the ER. Her initial blood pressure was 230/110. She was given IV hydralazine which did not work. The chest x-ray did not demonstrate any acute cardiopulmonary process. She was also given Zofran and Ativan. She continued to feel somewhat weak and her blood pressure continued to remain elevated. She was given a liter of fluids. She was also given nitroglycerin. She was then given aspirin and morphine, and her symptoms started to improve, as well as her blood pressure. She was admitted for further evaluation of the hypertension. Patient has a past medical history significant for asthma and hypertension. This morning she states that she feels much better. She is no longer complaining of a headache or weakness. She states she has not been able to get out of bed because she's been tied to the IV line.] ROS: [No fever, chills, or rigors] [no cough, phlegm, or expectoration] [no nausea, vomiting, or diarrhea] [no hematuria, dysuria] [no musculoskelatal complaints] [no strokes or seizures] [no skin lesions] EXAMINATION: GENERAL: Well-appearing, well-nourished and in no acute distress. NECK: Supple without JVD or thyromegaly. LUNGS: Breath sounds clear to auscultation bilaterally. Respiration equal and unlabored. No wheezes, rales or rhonchi. HEART: Regular rate and rhythm without murmurs, rubs or gallops. S1 and S2 hea rd. EXTREMITIES: Normal range of motion, no edema. No clubbing or cyanosis. Peripheral pulses intact and strong. REVIEW OF LABS, ECG & MEDICAL DATA: LABS: White count 7.1, hemoglobin 14.1, platelets 226, sodium 140, potassium 3.7, B1 15, creatinine 0.56, troponins - less than 0.012, less than 0.012, 0.258 EKG: Normal sinus rhythm IMAGING: Chest x-ray dated 02/07/2022 shows no acute cardiopulmonary process; CT of the brain shows cerebral atrophy and chronic small vessel ischemia. No acute intracranial abnormality. VITALS: Temp 97.5, pulse 72, respirations 16, blood pressure 142/66, O2 sat uration 96% on 2 L via nasal cannula. IMPRESSION: 1. Hypertension, uncontrolled 2. Hypertensive emergency PLAN: Discontinue lisinopril. Start valsartan 160 mg twice a day. Discontinue hydralazine. Discontinue aspirin. Patient was educated on Motrin use. This is likely why her lisinopril was not working well. Further recommendations based on the patient's clinical course. Thank you for the consult and allowing us to participate in the care of this patient. Past Medical History Past Medical History: Asthma, Hypertension Additional Past Medical History / Comment(s): IBS, neck and back pain with pain and numbness in the arms and hands, Scoliosis History of Any Multi-Drug Resistant Organisms: None Reported Past Surgical History: Appendectomy, Cholecystectomy, Hysterectomy, Tonsillectomy Past Anesthesia/Blood Transfusion Reactions: No Reported Reaction Past Psychological History: No Psychological Hx Reported Smoking Status: Never smoker Past Alcohol Use History: None Reported Past Drug Use History: None Reported Medications and Allergies Home Medications Medication Instructions Recorded Confirmed Type Vit C/E/Zn/Coppr/Lutein/Zeaxan 2 cap PO DAILY 10/18/21 02/07/22 History [Preservision Areds 2 Softgel] lisinopriL [Zestril] 20 mg PO DAILY 02/07/22 02/07/22 History Allergies Allergy/AdvReac Type Severity Reaction Status Date / Time acetaminophen AdvReac stomach Verified 02/07/22 12:49 pain codeine AdvReac stomach Verified 02/07/22 12:49 pain [employer] AdvReac Unknown Diarrhea Uncoded 02/07/22 12:49 Physical Exam Vitals: Vital Signs Temp Pulse Pulse Resp BP BP Pulse Ox 02/08/22 11:44 97.5 F L 72 16 142/66 96 02/08/22 08:00 98.8 F 70 18 137/66 97 02/08/22 04:00 99.1 F 80 18 145/81 90 L 02/07/22 23:11 98.9 F 89 16 160/71 90 L 02/07/22 19:48 98.3 F 90 18 161/68 91 L 02/07/22 17:00 98.3 F 78 16 119/65 94 L Intake and Output 02/07/22 02/08/22 02/08/22 22:59 06:59 14:59 Intake Total 73.167 62.543 Balance 73.167 62.543 Intake: Intake, IV Titration 73.167 62.543 Amount Heparin Sod,Pork in 0.45% 73.167 62.543 NaCl 25,000 unit In 0.45 % NaCl 1 250ml.bag @ 12 UNITS/KG/HR 6.26 mls/hr IV .Q24H [facility] Rx#: [id number] Oral 0 Other: Voiding Method Toilet Toilet Toilet # Voids 2 # Bowel Movements 1 Weight 52.163 kg 52 kg Results 02/07/22 08:21 02/07/22 08:21 Cardiac Enzymes 02/07/22 02/07/22 Range/Units 11:30 17:46 Troponin I <0.012 0.258 H* (0.000-0.034) ng/mL Coagulation 02/07/22 02/08/22 02/08/22 Range/Units 11:30 03:33 10:36 PT 10.9 (9.0-12.0) sec APTT 19.3 L 73.9 H 80.2 H (22.0-30.0) sec Current Medications Generic Name Dose Route Start Last Admin Trade Name Freq PRN Reason Stop Dose Admin Famotidine 20 mg 02/08/22 09:00 02/08/22 10:22 Famotidine 20 Mg/2 Ml Vial IV 20 mg Q12HR [facility] Administration Heparin Sodium (Porcine) 0 unit 02/07/22 18:42 Heparin Sodium 1,000 Un/Ml (10ml Vl) IV PER PROTOCOL PRN Low PTT Protocol Heparin Sodium/Sodium Chloride 250 mls @ 6.26 mls/hr 02/07/22 18:45 02/08/22 11:33 25,000 unit/ Sodium Chloride IV 15.17 units/kg/hr .Q24H [facility] 7.913 mls/hr Titration Protocol 12 UNITS/KG/HR Morphine Sulfate 2 mg 02/07/22 14:59 Morphine Sulfate 2 Mg/Ml Syringe IVP Q4H PRN Moderate Pain (Scale 4 to 6) Naloxone HCl 0.2 mg 02/07/22 14:57 Naloxone 0.4 Mg/Ml 1 Ml Vial IV Q2M PRN Opioid Reversal Ondansetron HCl 4 mg 02/07/22 14:57 Ondansetron 4 Mg/2 Ml Vial IVP Q8HR PRN Nausea And Vomiting Valsartan 160 mg 02/08/22 10:00 02/08/22 10:32 Valsartan 160 Mg Tab PO 160 mg BID [facility] Administration Intake and Output 02/07/22 02/08/22 02/08/22 22:59 06:59 14:59 Intake Total 73.167 62.543 Balance 73.167 62.543 Intake: Intake, IV Titration 73.167 62.543 Amount Heparin Sod,Pork in 0.45% 73.167 62.543 NaCl 25,000 unit In 0.45 % NaCl 1 250ml.bag @ 12 UNITS/KG/HR 6.26 mls/hr IV .Q24H [facility] Rx#: [id number] Oral 0 Other: Voiding Method Toilet Toilet Toilet # Voids 2 # Bowel Movements 1 Weight 52.163 kg 52 kg 02/07/22 08:21 02/07/22 08:21
[2022-02-08] MEDS: HEPARIN SOD,PORK IN 0.45% NACL 25,000 UNIT in 0.45% NACL 1 250ML.BAG IV SCH (18:45)
[2022-02-09] MEDS: VALSARTAN 160 MG TAB PO SCH (08:25)
[2022-02-09] MEDS: FAMOTIDINE 20 MG/2 ML VIAL IV SCH (08:25)
[2022-02-09] MEDS ORDERED: VALSARTAN 160 MG TAB PO STA (09:55)
[2022-02-09] MEDS ORDERED: amLODIPine 5 MG TAB PO SCH (12:00)
--- NOTE | 2022-02-09 12:28 | P.PN ---
Subjective Progress Note Date: 02/09/22 This is Deyvi Stevenson NP, I'm dictating on behalf of Dr. Garcia's H&P and A&P. Patient was interviewed and examined. Patient is a pleasant 86-year-old female who initially presented to the hospital with a hypertensive emergency. We started the patient on valsartan yesterday, which does appear to be assisting in decreasing her blood pressure, however this morning she was 209/87. After the valsartan was given she was 186/86. She currently denies the symptoms that brought her to the hospital, including headache, and shortness of breath. She also denies chest pain. GENERAL: Well-appearing, well-nourished and in no acute distress. NECK: Supple without JVD or thyromegaly. LUNGS: Breath sounds clear to auscultation bilaterally. Respiration equal and unlabored. No wheezes, rales or rhonchi. HEART: Regular rate and rhythm without murmurs, rubs or gallops. S1 and S2 heard. EXTREMITIES: Normal range of motion, no edema. No clubbing or cyanosis. Peripheral pulses intact and strong. VITALS: Temp 97.4, pulse 65, respirations 16, blood pressure 186/86, O2 saturation 95% on room air TELEMETRY: Normal sinus rhythm LABS: No new labs to report IMPRESSION: 1. Hypertension, uncontrolled 2. Hypertensive emergency PLAN: Discontinue heparin If her blood pressure is not under 160/80 by Thursday, add amlodipine We will change her valsartan to 320mg daily, give 160mg extra this morning to eq ual to 320mg. Further recommendations based on the patient's clinical course. Objective - Vital Signs Vital signs: Vital Signs Temp 97.4 F L 02/09/22 09:11 Pulse 65 02/09/22 09:11 Resp 16 02/09/22 09:11 BP 186/86 02/09/22 09:11 Pulse Ox 95 02/09/22 09:11 FiO2 Intake & Output 02/08/22 02/09/22 02/09/22 18:59 06:59 18:59 Intake Total 355.517 238.937 Balance 355.517 238.937 Intake: Intake, IV Titration 119.517 120.937 Amount Heparin Sod,Pork in 0.45% 119.517 120.937 NaCl 25,000 unit In 0.45 % NaCl 1 250ml.bag @ 12 UNITS/KG/HR 6.26 mls/hr IV .Q24H [facility] Rx#: [id number] Oral 236 118 Other: Voiding Method Toilet Toilet Toilet # Voids 2 1 - Labs CBC & Chem 7: 02/07/22 08:21 02/07/22 08:21 Labs: Abnormal Lab Results - Last 24 Hours (Table) 02/08/22 02/09/22 Range/Units 18:14 07:36 APTT 60.4 H 52.6 H (22.0-30.0) sec
--- NOTE | 2022-02-09 14:53 | CA ---
Transthoracic Echo Report Name: Lucina Estrada Age: 86 Gender: F : 1935 Exam Date: 02/08/2022 12:24 Exam Location: [facility] Ht (in): 60 Wt (lb): 114 Ordering Physician: Rafa Fuentes MD Attending/Referring Phys: [id number], Alfredo Zigzag Topstitcher Charisse Daniels, [facility] Procedure CPT: Indications: Rule out heart disease Cardiac Hx: Technical Quality: Good Contrast 1: Total Dose (mL): Contrast 2: Total Dose (mL): MEASUREMENTS (Male / Female) Normal Values 2D ECHO LV Diastolic Diameter PLAX 4.5 cm 4.2 - 5.9 / 3.9 - 5.3 cm LV Systolic Diameter PLAX 2.4 cm IVS Diastolic Thickness 1.3 cm 0.6 - 1.0 / 0.6 - 0.9 cm LVPW Diastolic Thickness 1.2 cm 0.6 - 1.0 / 0.6 - 0.9 cm LV Relative Wall Thickness 0.5 RV Internal Dim ED PLAX 3.4 cm LA Systolic Diameter LX 3.6 cm 3.0 - 4.0 / 2.7 - 3.8 cm LA Volume 46.7 cm??? 18 - 58 / 22 - 52 cm??? M-MODE Aortic Root Diameter MM 3.5 cm MV E Point Septal Separation 0.3 cm AV Cusp Separation MM 1.7 cm DOPPLER AV Peak Velocity 140.5 cm/s AV Peak Gradient 7.9 mmHg AI Peak Velocity 449.7 cm/s AI Peak Gradient 80.9 mmHg AI Pressure Half Time 586.7 ms MV Area PHT 2.9 cm??? Mitral E Point Velocity 97.7 cm/s Mitral A Point Velocity 109.0 cm/s Mitral E to A Ratio 0.9 MV Deceleration Time 263.3 ms MV E' Velocity 6.7 cm/s Mitral E to MV E' Ratio 14.6 TR Peak Velocity 259.0 cm/s TR Peak Gradient 26.8 mmHg Right Ventricular Systolic Press 29.8 mmHg FINDINGS Left Ventricle Left ventricular ejection fraction is estimated at 55-60 %. Mildly increased septal wall thickness. Mildly increased posterior wall thickness. Left ventricular cavity size normal. Right Ventricle Mild right ventricular dilatation. Mild pulmonary hypertension. Right Atrium Normal right atrial size. Left Atrium Normal left atrial size. No evidence for an atrial septal defect. Mitral Valve Structurally normal mitral valve. Trace mitral regurgitation. Aortic Valve Trileaflet aortic valve. Focal thickening of the aortic valve cusps. Mild aortic regurgitation. Tricuspid Valve Mild tricuspid regurgitation. Pulmonic Valve Trace to mild pulmonic regurgitation. Pericardium Normal pericardium. No pericardial effusion. Aorta Normal size aortic root and proximal ascending aorta. CONCLUSIONS LVH with preserved LV systolic function Septal bulge Previewed by: Dr. Nazario Garcia MD (Electronically Signed) Final Date: 09 February 2022 14:52
--- NOTE | 2022-02-09 14:53 | CA ---
Transthoracic Echo Report Name: Lucina Estrada Age: 86 Gender: F : 1935 Exam Date: 02/08/2022 12:24 Exam Location: [facility] Ht (in): 60 Wt (lb): 114 Ordering Physician: Rafa Fuentes MD Attending/Referring Phys: [id number], Alfredo Metrology Specialist Charisse Daniels, [facility] Procedure CPT: Indications: Rule out heart disease Cardiac Hx: Technical Quality: Good Contrast 1: Total Dose (mL): Contrast 2: Total Dose (mL): MEASUREMENTS (Male / Female) Normal Values 2D ECHO LV Diastolic Diameter PLAX 4.5 cm 4.2 - 5.9 / 3.9 - 5.3 cm LV Systolic Diameter PLAX 2.4 cm IVS Diastolic Thickness 1.3 cm 0.6 - 1.0 / 0.6 - 0.9 cm LVPW Diastolic Thickness 1.2 cm 0.6 - 1.0 / 0.6 - 0.9 cm LV Relative Wall Thickness 0.5 RV Internal Dim ED PLAX 3.4 cm LA Systolic Diameter LX 3.6 cm 3.0 - 4.0 / 2.7 - 3.8 cm LA Volume 46.7 cm??? 18 - 58 / 22 - 52 cm??? M-MODE Aortic Root Diameter MM 3.5 cm MV E Point Septal Separation 0.3 cm AV Cusp Separation MM 1.7 cm DOPPLER AV Peak Velocity 140.5 cm/s AV Peak Gradient 7.9 mmHg AI Peak Velocity 449.7 cm/s AI Peak Gradient 80.9 mmHg AI Pressure Half Time 586.7 ms MV Area PHT 2.9 cm??? Mitral E Point Velocity 97.7 cm/s Mitral A Point Velocity 109.0 cm/s Mitral E to A Ratio 0.9 MV Deceleration Time 263.3 ms MV E' Velocity 6.7 cm/s Mitral E to MV E' Ratio 14.6 TR Peak Velocity 259.0 cm/s TR Peak Gradient 26.8 mmHg Right Ventricular Systolic Press 29.8 mmHg FINDINGS Left Ventricle Left ventricular ejection fraction is estimated at 55-60 %. Mildly increased septal wall thickness. Mildly increased posterior wall thickness. Left ventricular cavity size normal. Right Ventricle Mild right ventricular dilatation. Mild pulmonary hypertension. Right Atrium Normal right atrial size. Left Atrium Normal left atrial size. No evidence for an atrial septal defect. Mitral Valve Structurally normal mitral valve. Trace mitral regurgitation. Aortic Valve Trileaflet aortic valve. Focal thickening of the aortic valve cusps. Mild aortic regurgitation. Tricuspid Valve Mild tricuspid regurgitation. Pulmonic Valve Trace to mild pulmonic regurgitation. Pericardium Normal pericardium. No pericardial effusion. Aorta Normal size aortic root and proximal ascending aorta. CONCLUSIONS LVH with preserved LV systolic function Septal bulge Previewed by: Dr. Nazario Garcia MD (Electronically Signed) Final Date: 09 February 2022 14:52
--- NOTE | 2022-02-09 15:09 | P.PN ---
Subjective This is a pleasant 86 years old female with past medical history of Asthma, Hypertension,IBS, neck and back pain with pain and numbness in the arms and hands, Scoliosis Presents because of headache and hypertension 230/110. Patient states that her headache was mild about 2/10, currently is completely resolved no other symptoms like dizziness or weakness or numbness. No blurred vision or slurred speech. She has some mild chest pain which was central nonradiating yesterday and is now completely gone. No dyspnea, no coughing. No vomiting or diarrhea or abdominal pain. No dysuria or urgency. Smoked or drank alcohol use drugs she states. She follows up with Dr. Myers and [facility] for her scoliosis and neck pain and spinal disease which causes sometimes leg pain Currently her blood pressure improved down to 145/81. She is saturating 90% on room air. She is afebrile. Vitals are stable. Unremarkable labs including CBC, INR 1.0, normal d-dimer of 0.52. BNP is unremarkable Liver enzymes not elevated. Troponin: 2 negative results less than 0.012, slightly elevated at 0.25. Urine analysis is unremarkable. CT of the brain: Cerebral atrophy and chronic ischemic changes with no acute intracranial process. Chest x-ray: No acute process. EKG showing normal sinus rhythm at [address]-T changes. In the emergency room patient received hydralazine and heparin drip 02/10/2012 Patient denies headache, denies chest pain today, she was asking if she can go home today but discussed her problems and she agrees to stay and continued care. I Discussed with bed side nurse to stop heparin drip in the morning. Patient blood pressure is uncontrolled, she received another extra dose of losartan 160 mg in the morning, however her blood pressure went up 186/86 up to 196/62, Norvasc 5 mg started with close monitoring of blood pressure Start IV fluid Objective - Vital Signs Vital signs: Vital Signs Temp 98.3 F 02/09/22 12:13 Pulse 60 02/09/22 12:13 Resp 18 02/09/22 12:13 BP 196/62 02/09/22 12:13 Pulse Ox 95 02/09/22 12:13 FiO2 Intake & Output 02/08/22 02/09/22 02/09/22 18:59 06:59 18:59 Intake Total 355.517 356.937 Balance 355.517 356.937 Intake: Intake, IV Titration 119.517 120.937 Amount Heparin Sod,Pork in 0.45% 119.517 120.937 NaCl 25,000 unit In 0.45 % NaCl 1 250ml.bag @ 12 UNITS/KG/HR 6.26 mls/hr IV .Q24H [facility] Rx#: [id number] Oral 236 236 Other: Voiding Method Toilet Toilet Toilet # Voids 2 1 - Exam GENERAL: The patient is alert and oriented x3, not in any acute distress. Well developed, well nourished. HEENT: Pupils are round and equally reacting to light. EOMI. No scleral icterus. No conjunctival pallor. Normocephalic, atraumatic. No pharyngeal erythema. No thyromegaly. CARDIOVASCULAR: S1 and S2 present. No murmurs, rubs, or gallops. PULMONARY: Chest is clear to auscultation, no wheezing or crackles. ABDOMEN: Soft, nontender, nondistended, normoactive bowel sounds. No palpable organomegaly. MUSCULOSKELETAL: No joint swelling or deformity. EXTREMITIES: No cyanosis, clubbing, or pedal edema. NEUROLOGICAL: Gross neurological examination did not reveal any focal deficits. SKIN: No rashes. no petechiae. - Labs CBC & Chem 7: 02/07/22 08:21 02/07/22 08:21 Labs: Abnormal Lab Results - Last 24 Hours (Table) 02/08/22 02/09/22 Range/Units 18:14 07:36 APTT 60.4 H 52.6 H (22.0-30.0) sec Assessment and Plan Assessment: Hypertension with urgency on admission elevated troponin, most likely secondary to stress from hypertension. Rule out non-STEMI Asthma, not in active tissue History of irritable bowel syndrome Chronic neck and back pain with chronic numbness or forearms and hands History of scoliosis Plan: This is a pleasant 56 years old female with an estimated hypertension No need for aspirin, risks more than benefits Continue heparin drip Continue with antihypertensive medication, currently on losartan 320 mg daily, Norvasc 5 mg added Continue close monitoring of blood pressure Consider starting IV fluid Cardiology consult Labs and medication were reviewed.. Continue same treatment. Continue with symptomatic treatment. Resume home medication. Monitor lytes and vitals. DVT and GI prophylaxis. Further recommendations as per clinical course of the patient DVT prophylaxis: heparin GI Prophylaxis: Pepcid Prognosis is guarded discussed with staff and bedside nurse
[2022-02-09] MEDS: amLODIPine 5 MG TAB PO SCH ×2 (18:55→20:29)
[2022-02-09] MEDS ORDERED: hydrALAZINE HCL 20 MG/ML 1 ML VIAL IVP PRN (19:43)
[2022-02-09] MEDS ORDERED: LORazepam 1 MG/0.5 ML VIAL IV PRN (19:43)
[2022-02-09] MEDS: FAMOTIDINE 20 MG TAB PO SCH (20:28)
[2022-02-10] MEDS ORDERED: hydrALAZINE HCL 25 MG TAB PO PRN (05:35)
[2022-02-10] MEDS: VALSARTAN 160 MG TAB PO SCH (08:44)
[2022-02-10] MEDS: FAMOTIDINE 20 MG TAB PO SCH (08:44)
[2022-02-10] MEDS: amLODIPine 5 MG TAB PO SCH ×2 (08:44→20:46)
[2022-02-10 09:24] LABS: HCT 42.1 % (34.0-46.0); HGB 14.2 gm/dL (11.4-16.0); MCH 29.8 pg (25.0-35.0); MCHC 33.7 g/dL (31.0-37.0); MCV 88.4 fL (80.0-100.0); Mean Platelet Volume 8.1; Platelet Count 254 k/uL (150-450); RBC 4.76 m/uL (3.80-5.40); RDW 12.9 % (11.5-15.5); WBC 5.6 k/uL (3.8-10.6)
--- NOTE | 2022-02-10 09:32 | P.PN ---
Subjective Progress Note Date: 02/10/22 HISTORY OF PRESENT ILLNESS: This is an 86-year-old female who does not follow up outpatient with a director of compliance. She is admitted to the hospital secondary to hypertensive emergency. Patient was started on valsartan and amlodipine. Her blood pressures have improved. She denies any chest pain or pressure. She denies any shortness of breath. Echocardiogram reveals ejection fraction 55-60% PHYSICAL EXAM: VITAL SIGNS: Reviewed. GENERAL: Well-developed in no acute distress. NECK: Supple. No JVD or thyromegaly LUNGS: Respirations even and unlabored. Lungs essentially clear to auscultation bilaterally. HEART: Regular rate and rhythm. S1 and S2 heard. EXTREMITIES: Normal range of motion. No clubbing or cyanosis. Peripheral pulses intact. No lower extremity edema ASSESSMENT: Hypertensive emergency History of hypertension PLAN: Continue current cardiac medications Patient is stable for discharge home today from a cardiac standpoint Patient to follow-up on an outpatient basis with Dr. Garcia Nurse practitioner note has been reviewed by physician. Signing provider agrees with the documented findings, assessment, and plan of care. Objective - Vital Signs Vital signs: Vital Signs Temp 97.9 F 02/10/22 03:42 Pulse 74 02/10/22 03:42 Resp 16 02/10/22 03:42 BP 136/65 02/10/22 03:42 Pulse Ox 95 02/10/22 03:42 FiO2 Intake & Output 02/09/22 02/10/22 02/10/22 18:59 06:59 18:59 Intake Total 1014.937 975 240 Balance 1014.937 975 240 Intake: Intake, IV Titration 120.937 Amount Heparin Sod,Pork in 0.45% 120.937 NaCl 25,000 unit In 0.45 % NaCl 1 250ml.bag @ 12 UNITS/KG/HR 6.26 mls/hr IV .Q24H [facility] Rx#: [id number] Oral 894 [id number] Other: Voiding Method Toilet Toilet # Voids 2 3 - Labs CBC & Chem 7: 02/10/22 09:00 02/07/22 08:21
--- NOTE | 2022-02-10 09:32 | P.PN ---
Subjective Progress Note Date: 02/10/22 HISTORY OF PRESENT ILLNESS: This is an 86-year-old female who does not follow up outpatient with a lead systems developer. She is admitted to the hospital secondary to hypertensive emergency. Patient was started on valsartan and amlodipine. Her blood pressures have improved. She denies any chest pain or pressure. She denies any shortness of breath. Echocardiogram reveals ejection fraction 55-60% PHYSICAL EXAM: VITAL SIGNS: Reviewed. GENERAL: Well-developed in no acute distress. NECK: Supple. No JVD or thyromegaly LUNGS: Respirations even and unlabored. Lungs essentially clear to auscultation bilaterally. HEART: Regular rate and rhythm. S1 and S2 heard. EXTREMITIES: Normal range of motion. No clubbing or cyanosis. Peripheral pulses intact. No lower extremity edema ASSESSMENT: Hypertensive emergency History of hypertension PLAN: Continue current cardiac medications Patient is stable for discharge home today from a cardiac standpoint Patient to follow-up on an outpatient basis with Dr. Garcia Nurse practitioner note has been reviewed by physician. Signing provider agrees with the documented findings, assessment, and plan of care. Objective - Vital Signs Vital signs: Vital Signs Temp 97.9 F 02/10/22 03:42 Pulse 74 02/10/22 03:42 Resp 16 02/10/22 03:42 BP 136/65 02/10/22 03:42 Pulse Ox 95 02/10/22 03:42 FiO2 Intake & Output 02/09/22 02/10/22 02/10/22 18:59 06:59 18:59 Intake Total 1014.937 975 240 Balance 1014.937 975 240 Intake: Intake, IV Titration 120.937 Amount Heparin Sod,Pork in 0.45% 120.937 NaCl 25,000 unit In 0.45 % NaCl 1 250ml.bag @ 12 UNITS/KG/HR 6.26 mls/hr IV .Q24H [facility] Rx#: [id number] Oral 894 [id number] Other: Voiding Method Toilet Toilet # Voids 2 3 - Labs CBC & Chem 7: 02/10/22 09:00 02/07/22 08:21
[2022-02-10 09:38] LABS: ALT 17 U/L (4-34); AST 20 U/L (14-36); African American GFR (CKD) >90 (>60 ml/min/1.73 sqM); Alkaline Phosphatase 78 U/L (38-126); Anion Gap 12 mmol/L; Blood Urea Nitrogen 19 mg/dL (7-17); Calcium 9.4 mg/dL (8.4-10.2); Carbon Dioxide 25 mmol/L (22-30); Chloride 103 mmol/L (98-107); Glucose 158 mg/dL (74-99); Non-African American GFR(CKD) 79 (>60 ml/min/1.73 sqM); Potassium 3.4 mmol/L (3.5-5.1); Sodium 140 mmol/L (137-145); Total Bilirubin 1.3 mg/dL (0.2-1.3); Total Protein 6.2 g/dL (6.3-8.2)
--- NOTE | 2022-02-10 20:08 | P.PN ---
Subjective This is a pleasant 86 years old female with past medical history of Asthma, Hypertension,IBS, neck and back pain with pain and numbness in the arms and hands, Scoliosis Presents because of headache and hypertension 230/110. Patient states that her headache was mild about 2/10, currently is completely resolved no other symptoms like dizziness or weakness or numbness. No blurred vision or slurred speech. She has some mild chest pain which was central nonradiating yesterday and is now completely gone. No dyspnea, no coughing. No vomiting or diarrhea or abdominal pain. No dysuria or urgency. Smoked or drank alcohol use drugs she states. She follows up with Dr. Myers and [facility] for her scoliosis and neck pain and spinal disease which causes sometimes leg pain Currently her blood pressure improved down to 145/81. She is saturating 90% on room air. She is afebrile. Vitals are stable. Unremarkable labs including CBC, INR 1.0, normal d-dimer of 0.52. BNP is unremarkable Liver enzymes not elevated. Troponin: 2 negative results less than 0.012, slightly elevated at 0.25. Urine analysis is unremarkable. CT of the brain: Cerebral atrophy and chronic ischemic changes with no acute intracranial process. Chest x-ray: No acute process. EKG showing normal sinus rhythm at [address]-T changes. In the emergency room patient received hydralazine and heparin drip 02/10/2012 Patient denies headache, denies chest pain today, she was asking if she can go home today but discussed her problems and she agrees to stay and continued care. I Discussed with bed side nurse to stop heparin drip in the morning. Patient blood pressure is uncontrolled, she received another extra dose of losartan 160 mg in the morning, however her blood pressure went up 186/86 up to 196/62, Norvasc 5 mg started with close monitoring of blood pressure Start IV fluid 02/10/2022 patient is clinically improving and her blood pressure becoming more controlled TSH is normal Blood pressure 110/65-167/70 Possible discharge in 24-48 hours Continue with losartan and Norvasc Objective - Vital Signs Vital signs: Vital Signs Temp 97.8 F 02/10/22 08:00 Pulse 72 02/10/22 12:00 Resp 16 02/10/22 08:00 BP 142/79 02/10/22 12:00 Pulse Ox 95 02/10/22 12:00 FiO2 Intake & Output 02/09/22 02/10/22 02/10/22 18:59 06:59 18:59 Intake Total 1014.937 975 240 Balance 1014.937 975 240 Intake: Intake, IV Titration 120.937 Amount Heparin Sod,Pork in 0.45% 120.937 NaCl 25,000 unit In 0.45 % NaCl 1 250ml.bag @ 12 UNITS/KG/HR 6.26 mls/hr IV .Q24H [facility] Rx#: [id number] Oral 894 [id number] Other: Voiding Method Toilet Toilet Toilet # Voids 2 3 - Exam GENERAL: The patient is alert and oriented x3, not in any acute distress. Well developed, well nourished. HEENT: Pupils are round and equally reacting to light. EOMI. No scleral icterus. No conjunctival pallor. Normocephalic, atraumatic. No pharyngeal erythema. No thyromegaly. CARDIOVASCULAR: S1 and S2 present. No murmurs, rubs, or gallops. PULMONARY: Chest is clear to auscultation, no wheezing or crackles. ABDOMEN: Soft, nontender, nondistended, normoactive bowel sounds. No palpable organomegaly. MUSCULOSKELETAL: No joint swelling or deformity. EXTREMITIES: No cyanosis, clubbing, or pedal edema. NEUROLOGICAL: Gross neurological examination did not reveal any focal deficits. SKIN: No rashes. no petechiae. - Labs CBC & Chem 7: 02/10/22 09:00 02/10/22 09:00 Labs: Abnormal Lab Results - Last 24 Hours (Table) 02/10/22 Range/Units 09:00 Potassium 3.4 L (3.5-5.1) mmol/L BUN 19 H (7-17) mg/dL Glucose 158 H (74-99) mg/dL Total Protein 6.2 L (6.3-8.2) g/dL Assessment and Plan Assessment: Hypertension with urgency on admission elevated troponin, most likely secondary to stress from hypertension. Rule out non-STEMI Asthma, not in active tissue History of irritable bowel syndrome Chronic neck and back pain with chronic numbness or forearms and hands History of scoliosis Plan: This is a pleasant 56 years old female with an estimated hypertension No need for aspirin, risks more than benefits Continue heparin drip Continue with antihypertensive medication, currently on losartan 320 mg daily, Norvasc 5 mg added Continue close monitoring of blood pressure Consider starting IV fluid Cardiology consult Labs and medication were reviewed.. Continue same treatment. Continue with symptomatic treatment. Resume home medication. Monitor lytes and vitals. DVT and GI prophylaxis. Further recommendations as per clinical course of the patient DVT prophylaxis: heparin GI Prophylaxis: Pepcid Prognosis is guarded discussed with staff and bedside nurse
[2022-02-11 06:28] VITALS: RESP 16
[2022-02-11] MEDS ORDERED: FAMOTIDINE 20 MG TAB PO SCH (09:00)
[2022-02-11] MEDS: amLODIPine 5 MG TAB PO SCH (09:06)
[2022-02-11] MEDS: VALSARTAN 160 MG TAB PO SCH (09:07)
[2022-02-11 10:42] VITALS: TEMP 97
--- NOTE | 2022-02-11 11:35 | P.PN ---
Subjective Progress Note Date: 02/11/22 HISTORY OF PRESENT ILLNESS: This is an 86-year-old female who does not follow up outpatient with a certified physician assistant. She is admitted to the hospital secondary to hypertensive emergency. Patient was started on valsartan and amlodipine. Her blood pressures have improved. She denies any chest pain or pressure. She denies any shortness of breath. Echocardiogram reveals ejection fraction 55-60% 02/11/2022 Patient examined this morning at the bedside. Patient denies chest pain or p ressure. Denies SOB. Blood pressure remains stable. PHYSICAL EXAM: VITAL SIGNS: Reviewed. GENERAL: Well-developed in no acute distress. NECK: Supple. No JVD or thyromegaly LUNGS: Respirations even and unlabored. Lungs essentially clear to auscultation bilaterally. HEART: Regular rate and rhythm. S1 and S2 heard. EXTREMITIES: Normal range of motion. No clubbing or cyanosis. Peripheral pulses intact. No lower extremity edema ASSESSMENT: Hypertensive emergency History of hypertension PLAN: Continue current cardiac medications Patient is stable for discharge home today from a cardiac standpoint Patient to follow-up on an outpatient basis with Dr. Garcia Nurse practitioner note has been reviewed by physician. Signing provider agrees with the documented findings, assessment, and plan of care. Objective - Vital Signs Vital signs: Vital Signs Temp 97.0 F L 02/11/22 08:00 Pulse 75 02/11/22 08:00 Resp 16 02/11/22 08:00 BP 158/76 02/11/22 08:00 Pulse Ox 96 02/11/22 08:00 FiO2 Intake & Output 02/10/22 02/11/22 02/11/22 18:59 06:59 18:59 Intake Total 600 118 Output Total 430 Balance 600 -430 118 Intake: Oral 600 118 Output: Urine 430 Other: Voiding Method Toilet Toilet Toilet - Labs CBC & Chem 7: 02/10/22 09:00 02/10/22 09:00
[2022-02-11 12:13] VITALS: BP 152/77; PULSE 70
--- NOTE | 2022-02-11 23:44 | P.DS ---
Providers Date of admission: 02/07/22 14:57 Attending physician: Adonis Stringer Consults: 02/07/22 18:40 Consult Physician Routine Consulting Provider: Kvng Cox Consult Reason/Comments: elevated troponin Do you want consulting provider notified?: Yes Primary care physician: Chantel Myers Hospital Course: Diagnoses:. Hypertension with urgency on admission but controlled on discharge elevated troponin, most likely secondary to stress from hypertension. non- STEMI ruled out Asthma, not in active tissue History of irritable bowel syndrome Chronic neck and back pain with chronic numbness or forearms and hands History of scoliosis Hospital course: This is a pleasant 86 years old female with past medical history of Asthma, Hypertension,IBS, neck and back pain with pain and numbness in the arms and hands, Scoliosis Presents because of headache and hypertension 230/110. Patient states that her headache was mild about 2/10, currently is completely resolved no other symptoms like dizziness or weakness or numbness. No blurred vision or slurred speech. No chest pain or dyspnea or abdominal pain or vomiting. No urinary complaints Originally on admission patient was evaluated by commercial front load driver, her medications were adjusted to Norvasc 5 mg twice daily and valosartan 320 mg daily. Blood pressure is better controlled and patient is asymptomatic [facility] Compliance Coordinator already evaluated the patient and give her for discharge since yesterday. Discussed the case with them today and distal from the patient to go today. Problems and management plan were discussed with the patient and he verbalized understanding and acceptance Patient was found stable and can be discharged home in guarded prognosis however he needs follow-up as an outpatient. Patient was instructed to follow up with PCP Dr. Myers within one week and patient agrees Patient was instructed to follow up with Dr. Rodriguez in 1-2 weeks and she agrees to call and make appointment Physical exam Gen: patient is a AAOx3, no distress CVS: S1-S2, RRR, no murmur Lungs: B/L CTA, no wheezing Abdomen: soft, no distention, no tenderness, positive bowel sounds Extremity: no leg edema or induration Time spent more than 35 minutes Plan - Discharge Summary Discharge Rx Participant: No New Discharge Prescriptions: New amLODIPine [Norvasc] 5 mg PO BID #60 tab Valsartan [Diovan] 320 mg PO DAILY #60 tab Continue Vit C/E/Zn/Coppr/Lutein/Zeaxan [Preservision Areds 2 Softgel] 2 cap PO DAILY Discontinued lisinopriL [Zestril] 20 mg PO DAILY Discharge Medication List Vit C/E/Zn/Coppr/Lutein/Zeaxan [Preservision Areds 2 Softgel] 2 cap PO DAILY 10/18/21 [History] Valsartan [Diovan] 320 mg PO DAILY #60 tab 02/11/22 [Rx] amLODIPine [Norvasc] 5 mg PO BID #60 tab 02/11/22 [Rx] Follow up Appointment(s)/Referral(s): Nazario Garcia MD [STAFF PHYSICIAN] - 2 Weeks (CARDIOLOGY'S OFFICE WILL CONTACT YOU WITH APPOINTMENT DATE AND TIME.) Chantel Myers DO [Primary Care Provider] - 1-2 days (PLEASE CALL AND SCHEDULE AN APPOINTMENT.) Patient Instructions/Handouts: Amlodipine (By mouth), Valsartan (By mouth), Heart Healthy Diet (DC), How to Take a Blood Pressure (DC), Hypertensive Crisis (DC) Activity/Diet/Wound Care/Special Instructions: heart healthy diet activity is restricted till you see your doctor Discharge Disposition: HOME SELF-CARE
== END 2022-02-11 12:57 | disposition home or self-care (01) | DRG 305 ==
LOC: EC 07:37 → 3SCARD 14:57
PROVIDERS: ADMIT Internal Medicine; ATTEND Internal Medicine
DX: I16.0 Hypertensive urgency (principal); I16.1 Hypertensive emergency; R79.89 Other specified abnormal findings of blood chemistry; G89.29 Other chronic pain; I10 Essential (primary) hypertension; I08.3 Combined rheumatic disorders of mitral, aortic and tricuspid valves; I37.1 Nonrheumatic pulmonary valve insufficiency; M41.9 Scoliosis, unspecified; K58.9 Irritable bowel syndrome, unspecified; M54.9 Dorsalgia, unspecified; M54.2 Cervicalgia; G31.89 Other specified degenerative diseases of nervous system; J45.909 Unspecified asthma, uncomplicated; Z79.82 Long term (current) use of aspirin; Z79.899 Other long term (current) drug therapy; Z90.710 Acquired absence of both cervix and uterus; Z88.6 Allergy status to analgesic agent; Z88.5 Allergy status to narcotic agent; Z90.49 Acquired absence of other specified parts of digestive tract
CPT/HCPCS: 36415; 70450; 71046; 80053; 81001; 84443; 84484; 85025; 85027; 85379; 85610; 85730; 93005; 93306; 96361; 96374; 96375; 96376; 99285

== ENCOUNTER 2022-07-14 09:39 | Day surgery (SDC) | payer MEDICARE, BC ==
[~2022-07-14 09:39] MED LIST changes: -LACTATED RINGERS 1,000 ML IV SCH; -LIDOCAINE 1% (10MG/ML) FOR IV START INTRADERMA PRN; +SODIUM CHLORIDE 0.9% 1,000 ML IV SCH
[2022-07-14] MEDS ORDERED: SODIUM CHLORIDE 0.9% 500 ML 500 ML IV ONE (09:55)
[2022-07-14 10:04] VITALS: RESP 16; TEMP 97
[2022-07-14 14:06] VITALS: BP 175/85; PULSE 72
--- NOTE | 2022-07-21 11:35 | P.EPPROC ---
- EP Procedure Note Electrophysiology Procedure Note: Diagnosis Syncope Twelve-lead EKG shows sinus mechanism normal NC narrow QRS normal ST segments heart rate 56 beats a minute Baseline blood pressure 187/84 mmHg Baseline heart rate 64 beats a minute Patient had hypertension controlled the tilt table test. Blood pressures were greater than 200 mmHg by arm cuff measurement We will obtain 180 290 mmHg based on the clear site measurements Heart rates remained in the 60s and 70s She was laid supine at the end of the procedure No syncope Impression normal twelve-lead EKG with heart rates in the 50s Hypertension No evidence for neurocardiogenic syncope No clear-cut evidence for dysautonomia/orthostatic hypotension syndrome
== END 2022-07-14 12:35 | disposition home or self-care (01) ==
LOC: CATHEP 09:39
PROVIDERS: ATTEND Internal Medicine Clinical Cardiac Electrophysiology
DX: R55 Syncope and collapse (principal); R42 Dizziness and giddiness; I10 Essential (primary) hypertension; Z79.899 Other long term (current) drug therapy; Z88.5 Allergy status to narcotic agent; Z88.6 Allergy status to analgesic agent
CPT/HCPCS: 93660